=== PATIENT | female | born 1965 | race Caucasian/White ===

== ENCOUNTER 2017-09-24 13:59 | Observation (INO) ==
[2017-09-24] MEDS ORDERED: NORMAL SALINE 10 ML SYRINGE FLUSH IVP PRN ×2 (14:29→17:50)
[2017-09-24 14:38] LABS: Hemoglobin [HGB] 13.9 g/dL (12.0-16.0); RED BLOOD COUNT 4.56 10^6/uL (4.20-5.40)
[2017-09-24 14:39] LABS: BASOPHILS # (AUTO) 0.07 10*3/UL; BASOPHILS % (AUTO) 0.8 % (0-1); EOSINOPHILS # (AUTO) 0.33 10*3/UL; EOSINOPHILS % (AUTO) 3.6 % (0-8); Hematocrit [HCT] 41.3 % (37.0-47.0); LYMPHOCYTES # (AUTO) 4.22 10*3/uL; MEAN CORPUSCULAR HEMOGLOBIN 30.4 PG (27-31); MEAN CORPUSCULAR HGB CONC 33.6 g/dL (33-37); MEAN CORPUSCULAR VOLUME 90 FL (81-99); MEAN PLATELET VOLUME 7.4 FL (7.4-12.2); MONOCYTES # (AUTO) 0.71 10*3/UL (0.3-0.8); MONOCYTES % (AUTO) 7.8 % (5-15); NEUTROPHILS # (AUTO) 3.82 10*3/UL; NEUTROPHILS % (AUTO) 41.7 % (50-80); PLATELET MORPHOLOGY COMMENT NORMAL MORPHOLOGY (NORM); RBC MORPHOLOGY COMMENT NORMAL MORPHOLOGY (NORM); WBC MORPHOLOGY COMMENT NORMAL MORPHOLOGY (NORM)
[2017-09-24 14:45] LABS: BLOOD UREA NITROGEN 16 mg/dL (7-22); BUN/CREATININE RATIO 17.77 (6-20); SERUM ALBUMIN 4.6 g/dL (3.5-4.8)
--- NOTE | 2017-09-24 15:24 | EKG ---
[address] [address] Measurements Intervals [place] Rate: 66 P: 56 MO: 143 QRS: 94 QRSD: 97 T: 61 QT: 399 QTc: 413 Interpretive Statements SINUS RHYTHM BORDERLINE RIGHT AXIS DEVIATION [QRS AXIS > 90] No previous ECG available for comparison Electronically Signed On 09-25-17 11:23:53 MST by Ronal Enrique [email or web address]
--- NOTE | 2017-09-24 15:37 | DI ---
EXAM: CT Maxillofacial Without Intravenous Contrast CLINICAL HISTORY: Syncope. Swelling and bruising TECHNIQUE: Axial computed tomography images of the face without intravenous contrast. COMPARISON: No relevant prior studies available. FINDINGS: Bones/joints: No acute fracture. Soft tissues: Mild paranasal soft tissue swelling. Orbits: Unremarkable. Sinuses: Minimal paranasal sinus mucosal thickening.. IMPRESSION: No acute fracture
--- NOTE | 2017-09-24 15:39 | DI ---
EXAM: CT Head Without Intravenous Contrast CLINICAL HISTORY: Syncope. Swelling and bruising. TECHNIQUE: Axial computed tomography images of the head/brain without intravenous contrast. COMPARISON: No relevant prior studies available. FINDINGS: Brain: Unremarkable. No hemorrhage. No significant white matter disease. No edema. Ventricles: Unremarkable. No ventriculomegaly. Bones/joints: Unremarkable. No acute fracture. Sinuses: Unremarkable as visualized. No acute sinusitis. Mastoid air cells: Unremarkable as visualized. No mastoid effusion. IMPRESSION: No acute brain or skull injury
--- NOTE | 2017-09-24 17:11 | PDOC ---
HPI - History of Present Illness History of Present Illness: This very nice 52-year-old female with no significant past medical history while shopping at [employer] she felt her heart flutter she also felt that in her neck and saw some flashing lights and the next thing she states is waking up in an ambulance. There was loss of consciousness she had a similar episode 1 year ago without the syncopal event. Denies chest pain nausea vomiting diarrhea fever. She did hit her face and is her new nose is very bruised but no fractures on CT scan Past Medical History Medical History: Syncope this admission Tobacco Use: Never Smoker In the Past 12 Months, Have Used or Abuse Any of the Following Substance: None Alcohol Use: None Medication / Allergies Home Medications: Home Medications Medication Instructions Recorded Confirmed Type Ibuprofen 800 mg PO QID PRN 09/24/17 09/24/17 History Allergies/Adverse Reactions: Allergies 3 Allergy/AdvReac Type Severity Reaction Status Date / Time Sulfa (Sulfonamide Allergy RASH Verified 09/24/17 14:18 Antibiotics) Review of Systems - Review of Systems All Systems: Reviewed & No Additional Complaints Except as Stated - Constitutional Constitutional: REPORTS: General Health Good - Eye Exam Eye Exam: DENIES: Negative System Review, Acuity Good, Acuity Fair, Acuity Poor , Glasses/Contacts, Vision Loss, Blurring, Redness, Diplopia, Catarats, Other, See HPI - Ear/Nose Exam Ear/Nose Exam: DENIES: Negative System Review, Decreased Hearing, Tinnitus, Otalgia, Sinus Pain, Rhinorrhea, Congestion, Anosmia, Epistaxis, Other, See HPI - Mouth/Throat Mouth/Throat Exam: DENIES: Negative System Review, Dental Problems, Oral Ulcers , Sore Throat, Hoarseness, Dysphagia, Dental Pain, Other, See HPI - Respiratory Respiratory: DENIES: Negative System Review, Cough, Sputum, Dyspnea At Rest, Dyspnea with Exertion, Pleuritic Pain, Hemoptysis, Wheezing, Other, See HPI - Cardiovascular Cardiovascular: REPORTS: Syncope, Palpitations - Gastrointestinal Gastrointestinal / Abdominal: DENIES: Negative System Review, Nausea, Vomiting, Diarrhea, Constipation, Abdominal Pain, Bloody Stool, Poor Appetite, Heartburn, Regurgitation, Bloating, Lactose Intolerance, Melena, Bright Red Blood per Rectum, Other, See HPI - Genitourinary Genitourinary: DENIES: Negative System Review, Pain, Burning, Hematuria, Incontinence, Urgency, Hesitant Stream, Decreased Stream, Nocutria, Discharge, Sexual Dysfunction, Other, See HPI - Neurological Neurologic: DENIES: Negative System Review, Headache, Numbness/Paresthesia, Tremors, Weakness, Seizures, Head Trauma, LOC, Dizziness, Confusion, Memory Loss , Difficulty Walking, Incoordination, Other, See HPI - Psychiatric Psychiatric: DENIES: Negative System Review, Anxiety, Depressed, Anhedonia, Hopelessness, Hospitalization, Panic, Sadness, Suicidality, Tearfullness, Other , See HPI Exam - Vitals Vital Signs: Vital Signs Temperature 97.2 F Temperature Source Oral Pulse Rate [Telemetry] 110 Respiratory Rate 16 Blood Pressure [Right Arm] 161/81 Pulse Ox 98 Height 5 ft 6 in Weight 165 lb - General General Appearance: No Acute Distress, Cooperative - Head Head Exam: Normal Inspection, Normocephalic Additional Head Exam Details: Facial trauma secondary to fall - Eye Eye Exam: POSITIVE: Normal Appearance, PERRL, EOMI, No Scleral Icterus - ENT ENT Exam: POSITIVE: Normal Exam, Normal External Ear Exam, Normal Oropharynx, TM 's Normal Bilaterally, Mucous Membranes Moist - Neck Neck Exam: Normal Inspection, Full ROM, No Tenderness, No Lymphadenopathy, No Thyromegaly, JVP is not Raised - Respiratory Respiratory Exam: POSITIVE: Clear to Auscultation - Bilaterally, Breathing Non Labored, Normal To Percussion, Normal to Percussion and Palpation - Cardiovascular Cardiovascular Exam: POSITIVE: RRR, No Murmur, No Clicks, No Gallops, No Rubs, PMI Non-Displaced - GI/Abdominal GI/Abdominal Exam: POSITIVE: Normal Bowel Sounds, Non Tender, Non Distended, Soft, No Masses, No Hepatomegaly, No Splenomegaly, No Organomegaly - Rectal Rectal Exam: POSITIVE: Deferred - External Exam: POSITIVE: Deferred Exam: POSITIVE: Deferred - Extremities Extremities Exam: POSITIVE: Normal Inspection, Full ROM, Normal Capillary Refill , No Clubbing Present, No Edema Present, No Cyanosis Present, Negative Ashley's sign, Dosalis Pedis Pulses - Stong & Regular - Neurological Neurological Exam: POSITIVE: Alert, Oriented x 3, Reflexes Normal, Normal Gait, CN II-XII Intact, No Facial Droop, Speech Intact / Clear, Moves All Extremities Equally, No Fasciculations, No Clonus - Psychiatric Psychiatric Exam: POSITIVE: Normal Affect, Normal Mood - Integumentary Integumentary Exam: POSITIVE: Normal Color, Warm, Dry, Intact Results - Labs CBC and BMP: 09/24/17 13:55 09/24/17 13:55 Assessment and Plan - Patient Problems (1) Syncope and collapse Current Visit: Yes Status: Acute Comment: Patient did feel some palpitations and flutter and initial EKG within normal limits we'll put her on the monitor we'll order an ultrasound of her heart, carotid ultrasound, electrolytes are within normal limits I will check a magnesium level and a TSH no fractures on her nose on CT scan Code(s): R55 - Syncope and collapse
--- NOTE | 2017-09-24 17:27 | PDOC ---
Syncope/Near-Syncope HPI - General Chief Complaint: Neurological Complaints Stated Complaint: SEIZURE Date Seen by Provider: 09/24/17 Time Seen by Provider: 14:15 Source: POSITIVE: Patient, EMS Exam Limitations: POSITIVE: No limitations Nurse's Notes Reviewed & Considered: Yes EMS Report Reviewed & Considered: Verbal - History of Present Illness Initial Comments: The patient is a 52-year-old female. She was shopping at [employer] She had a fairly abrupt loss of consciousness and fell face forward into a display cabinet. She struck the bridge of her nose and has a large hematoma over the bridge of the nose. She states that just prior to her loss of consciousness she states that "my vision became jumpy". She also states that she had a sensation of her "heart fluttering". Duration of loss of consciousness was uncertain, but it apparently was not more than a minute. Bystanders were told paramedics that the patient did have some tonic-clonic activities while unconscious. No tongue biting. No loss of urinary or fecal continence. Patient denies having had any headache or chest pain before or after the incident. Upon presentation to the emergency room she is alert and oriented with stable vital signs and she is in no distress. No previous history of seizure disorder. No previous history of cardiopulmonary problems. She does not smoke. She occasionally drinks alcohol. Body Location Affected: REPORTS: Other (Loss of consciousness; nasal trauma with fall) Timing: REPORTS: Abrupt Duration: Unknown Severity: Moderate Quality: REPORTS: Other (Some discomfort to the nose where she struck her nose on a display cabinet) Episode Began at:: 13:35 Most Recent Episode:: 09/24/17 Witnessed? 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) Associated Symptoms: REPORTS: None (feels back to nml), Other (please comment) ( Some discomfort to her nose at site of trauma) Recently seen/treated/hospitalized: No Any Prior Injuries Related to Current Complaint?: No - Patient Home Medications Home Medications: Home Medications Ibuprofen 800 mg PO QID PRN 09/24/17 - Patient Allergies Allergies/Adverse Reactions: Allergies 3 Allergy/AdvReac Type Severity Reaction Status Date / Time Sulfa (Sulfonamide Allergy RASH Verified 09/24/17 14:18 Antibiotics) Past Medical History - heen HEENT History: Denies History Cardiovascular History: Denies History Respiratory History: Denies History Gastrointestinal History: Denies History Genitourinary History: Denies History Endocrine History: Denies History Musculoskeletal History: Denies History Prosthesis or Implant: No Neurological History: Seizures Additional Neurological History: 09/24/17 SEIZURE TODAY/ NO HX Blood Disorders: Denies History Psychiatric History: Denies History LMP: 3 WK Cancer History: Denies History In Past Year Been Physically Harmed or Verbally Threatened: No History of MDRO: No Tobacco Use: Never Smoker Alcohol Use: Occasionally In the Past 12 Months, Have Used or Abuse Any Substance: None Previous Surgical History: No Additional Family History: 1 YR OLDER SISTER HAD SIMILAR EVENT WHERE SHE HIT HEAD AND THEN HAD A SEIZURE 1 YR AGO. SHE ALSO HAD NO HX OF SEIZURES Past Medical History Reviewed: Reviewed - No Changes ROS - Limitations ROS Limitations: No Limitations Constitution: REPORTS: Denies Symptoms Cardiovascular: REPORTS: Heart Palpitations Respiratory: REPORTS: Denies Resp Symptoms Neurological: REPORTS: Denies Neuro Symptoms Gastrointestinal: REPORTS: Denies GI Symptoms Endocrine: REPORTS: Denies Symptoms Musculoskeletal: REPORTS: Denies MS Symptoms Genitourinary: REPORTS: Denies Symptoms Eyes: REPORTS: Denies Symptoms ENT: REPORTS: Other (Contusion to bridge of nose) Skin: REPORTS: Other (Contusion some swelling to bridge of nose) Lympathic: REPORTS: Denies Lympathic Symptoms Immunologic: POSITIVE: Denies Symptoms Psychiatric: POSITIVE: Denies Psych Symptoms Syncope / Near-Syncope Exam - General Appearance General Appearance: POSITIVE: Alert, Cooperative, No Acute Distress. NEGATIVE: No Evidence of Trauma (Contusion and swelling to bridge of nose) - HEENT HEENT: POSITIVE: Head Inspection Nml, Eyes Inspection Nml, Ears Inspection Nml, Oral/Dental Inspect. Nml, Pharynx Inspect. Nml, PERRL, EOMI. NEGATIVE: Nose Inspection Nml (Contusion and swelling to bridge of nose. No gross septal deformity. No septal hematomas) - Pupil Size Pupil Size: 4 mm: Bilateral (PERRLA) - Neck / Back Neck/Back: POSITIVE: Supple, Non-Tender, No Carotid Bruit - Respiratory Respiratory: POSITIVE: No Respiratoy Distress, Breath Sounds Normal, No Pleuritic Chest Pain - Cardiovascular Cardiovascular: POSITIVE: Regular Rate and Rhythm, Heart Sounds Normal, Equal Pulses, Strong Pulses Peripheral Pulses: Radial (R): 2+, Radial (L): 2+ - Abdomen Abdomen: Soft: (All Quadrants), Normal Bowel Sounds: (All Quadrants), Denies Tenderness: (All Quadrants), No Splenomegaly: (All Quadrants), No Hepatomegaly: (All Quadrants), No Guarding: (All Quadrants), No Rebound: (All Quadrants), No Palpable Pulse: (All Quadrants), No Palpabale Mass: (All Quadrants), No Distention: (All Quadrants), No Rigidity: (All Quadrants) - Skin Skin: POSITIVE: Intact, Normal For Race, Warm, Dry, No Rash - Extremities Extremity: Non-Tender: (All Extremities), Normal ROM: (All Extremities), Normal Inspection: (All Extremities) - Neuro / Psych Higher Functions: POSITIVE: Oriented to Person, Oriented to Place, Oriented to Time, Normal Speech, Normal Cognition, Appropriate Mood, Appropriate Affect. NEGATIVE: Disoriented to Person, Disoriented to Place, Disoriented to Time, Speech Abnormalities, Cognition Abnormalities, Depressed Mood, Depressed Affect , Abnml Response to Command, No Response to Command, Eyes Open to Command, Slow Response to Command, Inapp Response to Command, Expressive Aphasia, Receptive Aphasia, Abnml Response to Pain, Withdraws to Pain, Flexor to Pain, Extensor to Pain, No Response to Pain, Dysarthria, Other Cranial Nerves: POSITIVE: Normal As Tested, No Evidence of Acute CVA Cerebellar: POSITIVE: Normal As Tested Sensorimotor: POSITIVE: No Motor Deficits, No Sensory Deficits, Reflexes Normal , Symmetrical Images - Head Head: 1 - Bruising and swelling Syncope/Near-Syncope Progress - Results Reviewed by me Xrays/CTs/US Reviewed by me: Yes Discussed with Radiologist: Yes Radiology Findings: CT scan head without contrast normal. CT scan maxillofacial bones shows no fracture; some paranasal swelling, per radiologist Lab Results Reviewed by Me: Yes (troponin normal) CBC and BMP: 09/24/17 13:55 09/24/17 13:55 EKG Interpreted/Reviewed By Me:: Yes (normal sinus rhythm; normal) EKG Interpretation:: POSITIVE: Normal Sinus Rhythm, Normal Rate, Normal Intervals, Normal [place], Normal QRS, Normal ST/T - Patient's Progress Pain Medication Addressed: POSITIVE: Not Applicable Re-examine Time: 16:00 Re-Examine Comment: Patient remained alert and comfortable throughout her stay in the emergency room; visiting with family. Status: POSITIVE: Unchanged CVA/Syncope Quality Measure Initiative: POSITIVE: EKG. NEGATIVE: t-PA Considered - Consult Consult (If Yes, Name of Consulting MD & Time Called): Yes (Dr. De Leon, hospitalist, 1600) Consulting MD will see pt:: POSITIVE: [facility] [place] Admit Counseled: POSITIVE: Patient, Family, RE: Lab Results, RE: Radiology Results, RE : DX, RE: Need for F/U Patient Care Time - Estimated PCT Patient Care Time (In Minutes): 40 Vital Signs - Recent Vital Signs Vital Signs: Vital Signs (Last 8 hours) Temp Pulse Resp BP Pulse Ox 09/24/17 14:01 97.2 F 110 H 16 161/81 98 - VS Reviewed Vital Signs Reviewed: Yes Discharge Clinical Impression: Syncope, Nasal contusion Discharge Disposition: Admit to Inpatient Condition: Serious Date Decision to Admit to Inpatient: 09/24/17 Time Decision to Admit to Inpatient: 16:00
[2017-09-24] MEDS ORDERED: LIDOCAINE W/ SODIUM BICARB 0.5 ML SYR SUBD PRN (17:50)
[2017-09-24] MEDS: Sodium Chloride 0.9% 1,000 ML PRIMARY IV SCH (21:07)
--- NOTE | 2017-09-24 22:22 | DI ---
EXAM: US Duplex Bilateral Extracranial Arteries CLINICAL HISTORY: Physician Notes: Tech Comments: TECHNIQUE: Real-time ultrasound scan of the bilateral carotid and vertebral arteries, 2-D johnston scale, with color Doppler flow and spectral waveform analysis. COMPARISON: No relevant prior studies available. FINDINGS: Right common carotid artery: Unremarkable. No occlusion or significant stenosis. Right internal carotid artery: Elevation of flow velocity within the distal right internal carotid artery. Maximum measured velocity is 135 cm/s. This would correlate with a 50-69% stenosis. However, there is a normal ICA/CCA ratio. Right external carotid artery: Unremarkable. No occlusion or significant stenosis. Right vertebral artery: Unremarkable. Antegrade flow. Right ICA/CCA ratio: Unremarkable. Within normal limits. Left common carotid artery: Unremarkable. No occlusion or significant stenosis. Left internal carotid artery: Unremarkable. No occlusion or significant stenosis. Left external carotid artery: Unremarkable. No occlusion or significant stenosis. Left vertebral artery: Unremarkable. Antegrade flow. Left ICA/CCA ratio: Unremarkable. Within normal limits. Lymph nodes: Unremarkable. No lymphadenopathy. CAROTID STENOSIS REFERENCE USING SRU CRITERIA: Mild - <50% stenosis. ICA PSV is less than 125 cm/second and plaque or intimal thickening is visible. Moderate - 50-69% stenosis. ICA PSV is 125 to 230 cm/second and plaque is visible. Severe - 70-94% stenosis. ICA PSV is more than 230 cm/second and visible plaque with lumen narrowing is seen. Near occlusion - 95-99% stenosis. ICA PSV is variable and significant plaque with luminal narrowing is seen. Occluded - 100% stenosis. No flow identified. IMPRESSION: Question a 50-69% stenosis of the distal right internal carotid artery based on elevated flow velocity. Otherwise unremarkable exam.
[2017-09-25 04:31] VITALS: O2SAT 98
[2017-09-25] MEDS: Sodium Chloride 0.9% 1,000 ML PRIMARY IV SCH ×2 (05:10→12:27)
[2017-09-25 06:21] LABS: BLOOD UREA NITROGEN 15 mg/dL (7-22); SERUM ALBUMIN 3.4 g/dL (3.5-4.8)
[2017-09-25 08:42] VITALS: BP 132/62; RESP 12; TEMP 97.5
[2017-09-25] MEDS ORDERED: Magnesium Sulfate 2gm (Premix) 2 GM/50 ML BAG IV ONE (09:26)
--- NOTE | 2017-09-25 11:15 | DCSUMMARY ---
Hospitalization Summary Hospital Course: Final Discharge Diagnosis: Current Visit Problems Problem Status Onset Code Syncope and collapse Acute R55 Syncope Acute R55 Nasal contusion Acute [id number] Diagnostic Data, Laboratory Data, and Procedures of Signifigance: Laboratory Results 09/24/17 09/24/17 09/24/17 Range/Units 13:55 13:55 13:55 WBC 9.2 (4.8-10.8) 10^3/uL RBC 4.56 (4.20-5.40) 10^6/uL Hgb 13.9 (12.0-16.0) g/dL Hct 41.3 (37.0-47.0) % MCV 90 (81-99) FL MCH 30.4 (27-31) PG MCHC 33.6 (33-37) g/dL RDW Coeff of Wilman 12.0 (11.5-14.5) % Plt Count 356 H (140-350) 10*3/uL MPV 7.4 (7.4-12.2) FL Neut % (Auto) 41.7 L (50-80) % Lymph % (Auto) 46.1 (10-50) % [place] % (Auto) 7.8 (5-15) % Eos % (Auto) 3.6 (0-8) % Baso % (Auto) 0.8 (0-1) % Neut # (Auto) 3.82 10*3/UL Lymph # (Auto) 4.22 10*3/uL [place] # (Auto) 0.71 (0.3-0.8) 10*3/UL Eos # (Auto) 0.33 10*3/UL Baso # (Auto) 0.07 10*3/UL WBC Morphology Comment Normal morphology (NORM) Plt Morphology Comment Normal morphology (NORM) RBC Morph Comment Normal morphology (NORM) Sodium 140 (135-145) meq/L Potassium 4.1 (3.8-5.2) meq/L Chloride 104 (98-112) meq/L Carbon Dioxide 14 L (23-33) meq/L Anion Gap 22 H (5-20) BUN 16 (7-22) mg/dL Creatinine 0.9 (0.50-1.20) mg/dL Estimated GFR > 60 (>60 ml/min/1.73m(2)) BUN/Creatinine Ratio 17.77 (6-20) Glucose 71 L (78-110) mg/dL Calculated Osmolality 288.0 (267-292) mOsm/kg Calcium 9.5 (8.7-10.7) mg/dL Magnesium (1.6-2.4) mg/dL Total Bilirubin 0.4 (0.3-1.2) mg/dL AST 25 (8-39) IU/L ALT 27 (9-52) IU/L Alkaline Phosphatase 62 (38-126) IU/L Total Creatine Kinase (30-136) IU/L Troponin I < 0.012 (< 0.040) ng/mL NT-Pro-B Natriuret Pep (0-125) PG/ML Total Protein 7.7 (6.1-8.0) g/dL Albumin 4.6 (3.5-4.8) g/dL Globulin 3.2 (2.50-4.10) g/dL Albumin/Globulin Ratio 1.40 (1.3-2.0) mg/g TSH (0.2700-4.2000) uIU/mL Serum Alcohol (0-10) mg/dL 09/24/17 09/24/17 09/24/17 Range/Units 13:55 16:16 18:01 WBC (4.8-10.8) 10^3/uL RBC (4.20-5.40) 10^6/uL Hgb (12.0-16.0) g/dL Hct (37.0-47.0) % MCV (81-99) FL MCH (27-31) PG MCHC (33-37) g/dL RDW Coeff of Wilman (11.5-14.5) % Plt Count (140-350) 10*3/uL MPV (7.4-12.2) FL Neut % (Auto) (50-80) % Lymph % (Auto) (10-50) % [place] % (Auto) (5-15) % Eos % (Auto) (0-8) % Baso % (Auto) (0-1) % Neut # (Auto) 10*3/UL Lymph # (Auto) 10*3/uL [place] # (Auto) (0.3-0.8) 10*3/UL Eos # (Auto) 10*3/UL Baso # (Auto) 10*3/UL WBC Morphology Comment (NORM) Plt Morphology Comment (NORM) RBC Morph Comment (NORM) Sodium (135-145) meq/L Potassium (3.8-5.2) meq/L Chloride (98-112) meq/L Carbon Dioxide (23-33) meq/L Anion Gap (5-20) BUN (7-22) mg/dL Creatinine (0.50-1.20) mg/dL Estimated GFR (>60 ml/min/1.73m(2)) BUN/Creatinine Ratio (6-20) Glucose (78-110) mg/dL Calculated Osmolality (267-292) mOsm/kg Calcium (8.7-10.7) mg/dL Magnesium (1.6-2.4) mg/dL Total Bilirubin (0.3-1.2) mg/dL AST (8-39) IU/L ALT (9-52) IU/L Alkaline Phosphatase (38-126) IU/L Total Creatine Kinase 69 (30-136) IU/L Troponin I < 0.012 (< 0.040) ng/mL NT-Pro-B Natriuret Pep (0-125) PG/ML Total Protein (6.1-8.0) g/dL Albumin (3.5-4.8) g/dL Globulin (2.50-4.10) g/dL Albumin/Globulin Ratio (1.3-2.0) mg/g TSH (0.2700-4.2000) uIU/mL Serum Alcohol < 10 (0-10) mg/dL 09/24/17 09/25/17 09/25/17 Range/Units 23:59 06:00 06:00 WBC (4.8-10.8) 10^3/uL RBC (4.20-5.40) 10^6/uL Hgb (12.0-16.0) g/dL Hct (37.0-47.0) % MCV (81-99) FL MCH (27-31) PG MCHC (33-37) g/dL RDW Coeff of Wilman (11.5-14.5) % Plt Count (140-350) 10*3/uL MPV (7.4-12.2) FL Neut % (Auto) (50-80) % Lymph % (Auto) (10-50) % [place] % (Auto) (5-15) % Eos % (Auto) (0-8) % Baso % (Auto) (0-1) % Neut # (Auto) 10*3/UL Lymph # (Auto) 10*3/uL [place] # (Auto) (0.3-0.8) 10*3/UL Eos # (Auto) 10*3/UL Baso # (Auto) 10*3/UL WBC Morphology Comment (NORM) Plt Morphology Comment (NORM) RBC Morph Comment (NORM) Sodium 144 (135-145) meq/L Potassium 3.9 (3.8-5.2) meq/L Chloride 112 (98-112) meq/L Carbon Dioxide 21 L (23-33) meq/L Anion Gap 11 (5-20) BUN 15 (7-22) mg/dL Creatinine 0.6 (0.50-1.20) mg/dL Estimated GFR > 60 (>60 ml/min/1.73m(2)) BUN/Creatinine Ratio 25.00 H (6-20) Glucose 95 (78-110) mg/dL Calculated Osmolality 298.0 H (267-292) mOsm/kg Calcium 8.6 L (8.7-10.7) mg/dL Magnesium 1.8 (1.6-2.4) mg/dL Total Bilirubin 0.4 (0.3-1.2) mg/dL AST 78 H (8-39) IU/L ALT 31 (9-52) IU/L Alkaline Phosphatase 51 (38-126) IU/L Total Creatine Kinase (30-136) IU/L Troponin I < 0.012 (< 0.040) ng/mL NT-Pro-B Natriuret Pep (0-125) PG/ML Total Protein 6.3 (6.1-8.0) g/dL Albumin 3.4 L (3.5-4.8) g/dL Globulin 2.9 (2.50-4.10) g/dL Albumin/Globulin Ratio 1.10 L (1.3-2.0) mg/g TSH (0.2700-4.2000) uIU/mL Serum Alcohol (0-10) mg/dL 09/25/17 09/25/17 Range/Units 06:00 06:00 WBC (4.8-10.8) 10^3/uL RBC (4.20-5.40) 10^6/uL Hgb (12.0-16.0) g/dL Hct (37.0-47.0) % MCV (81-99) FL MCH (27-31) PG MCHC (33-37) g/dL RDW Coeff of Wilman (11.5-14.5) % Plt Count (140-350) 10*3/uL MPV (7.4-12.2) FL Neut % (Auto) (50-80) % Lymph % (Auto) (10-50) % [place] % (Auto) (5-15) % Eos % (Auto) (0-8) % Baso % (Auto) (0-1) % Neut # (Auto) 10*3/UL Lymph # (Auto) 10*3/uL [place] # (Auto) (0.3-0.8) 10*3/UL Eos # (Auto) 10*3/UL Baso # (Auto) 10*3/UL WBC Morphology Comment (NORM) Plt Morphology Comment (NORM) RBC Morph Comment (NORM) Sodium (135-145) meq/L Potassium (3.8-5.2) meq/L Chloride (98-112) meq/L Carbon Dioxide (23-33) meq/L Anion Gap (5-20) BUN (7-22) mg/dL Creatinine (0.50-1.20) mg/dL Estimated GFR (>60 ml/min/1.73m(2)) BUN/Creatinine Ratio (6-20) Glucose (78-110) mg/dL Calculated Osmolality (267-292) mOsm/kg Calcium (8.7-10.7) mg/dL Magnesium (1.6-2.4) mg/dL Total Bilirubin (0.3-1.2) mg/dL AST (8-39) IU/L ALT (9-52) IU/L Alkaline Phosphatase (38-126) IU/L Total Creatine Kinase (30-136) IU/L Troponin I (< 0.040) ng/mL NT-Pro-B Natriuret Pep 55.8 (0-125) PG/ML Total Protein (6.1-8.0) g/dL Albumin (3.5-4.8) g/dL Globulin (2.50-4.10) g/dL Albumin/Globulin Ratio (1.3-2.0) mg/g TSH 1.81 (0.2700-4.2000) uIU/mL Serum Alcohol (0-10) mg/dL History and Physical pertinent to Admission: Course of Hospitalization: This very nice 52-year-old female who had a syncopal episode while shopping at [employer] with nasal contusion. There were no fractures were revealed on CT scan of the face and head. No EKG no apparent EKG abnormalities or any arrhythmias on telemetry overnight. Carotid ultrasound was performed there was a possible moderate 50-69 lesion in the right lower carotid artery. Echo was done reading still pending. Initial report from cardiac cath tech, no abnormalities. Patient did not have any chest pain nausea vomiting loss of urine before the episodes during the episode or after the episode she was not confused she had normal also aches slept well overnight. She is very anxious to be discharged home I have offered her to have a stress test while in the hospital she said that she would like to do this as an outpatient if necessary. I did discuss all this the test results with the patient and her they do agree with the Holter monitor also appointments will be made with Dr. Enrique cardiology and her primary care physician these appointments will be made tomorrow since the clinics are closed for and hopefully she can be seen early next week if city carrier a stress test that is necessary he will order it I told her . Also I told the patient and and if she has any types of vomiting or sudden headache to go to the ER immediately this could represent subdural hematoma but she did not hit her head just her nasal area so less likely I also told her not to take ibuprofen this could increase bleeding she will be taking Tylenol for pain. She ambulated around the hallways for 2 or 3 laps were no symptoms or the abnormalities I will also given her 2 g of magnesium will give her 40 mEq of potassium before she leaves the hospital even though these labs were within normal limits. I believe she was a little dehydrated and she was given IV fluids at 75 mL an hour overnight. Patient was seen and examined with nursing staff on agreement On the date of discharge, the patient was examined: Gen.: No acute distress, alert, nontoxic Heart: Regular rate and rhythm, no murmurs, clicks, gallops, or rubs Lungs: Clear to auscultation bilaterally, breathing is nonlabored Abdomen/GI: Normal tones on auscultation, soft, nontender, nondistended Musculoskeletal/extremities: No clubbing, cyanosis, or edema Vitals reviewed and are listed below Assessment and Plan: 1. As per discharge assessments above 2. Disposition: Home 3. Condition on discharge, stable and improved. 4. Diet: regular diet 5. Activities: resume normal activities 6. Follow-Up: August city carrier and primary care physician Holter monitor was set and will be removed Friday 1. PCP 2. 7. Medications at the Time of Discharge: 3 Generic Name Dose Route Start Last Admin Trade Name Freq PRN Reason Stop Dose Admin Sodium Chloride 1,000 mls @ 125 mls/hr 09/24/17 17:50 09/25/17 05:10 Normal Saline PRIMARY IV 125 mls/hr .Q8H CHERISE Administration Magnesium Sulfate 2 gm in 50 mls @ 25 mls/hr 09/25/17 09:26 09/25/17 09:47 Magnesium Sulfate 2gm (Premix) IV 09/25/17 11:25 25 mls/hr ONCE ONE Administration Lidocaine HCl 0.5 ml 09/24/17 17:50 Lidocaine Buffered Inj SUBD ONCE PRN IV Starts Potassium Chloride 40 meq 09/25/17 21:00 Klor-Con PO BID CHERISE Sodium Chloride 5 - 20 ml 09/24/17 17:50 Saline Flush IVP BID PRN Flush 8. Time, care, counseling and coordination of care for this discharge is greater than 30 minutes. Exam - Vitals Vital Signs: Vital Signs Temperature 97.5 F Temperature Source Temporal Artery Scan Pulse Rate [Pulse Oximeter] 73 Pulse Rate [Telemetry] 68 Pulse Rate 68 Respiratory Rate 12 Blood Pressure [Standing] 141/76 Blood Pressure [Sitting] 141/75 Blood Pressure [Lying] 125/53 Blood Pressure [Right Arm] 132/62 Blood Pressure 149/81 Pulse Ox 98 Oxygen Delivery Method Room Air Height 5 ft 6 in Weight 173 lb 9.6 oz Patient Problems - Patient Problem List (1) Syncope and collapse Current Visit: Yes Status: Acute Code(s): R55 - Syncope and collapse Category: Medical
[2017-09-25] MEDS ORDERED: POTASSIUM CHLORIDE 20 MEQ TAB PO SCH ×2 (12:00→21:00)
== END 2017-09-25 12:17 | disposition home or self-care (01) ==
LOC: MED/SURG 13:59 → ER 13:59
PROVIDERS: ADMIT Internal Medicine; ATTEND Internal Medicine